=== PATIENT | male | born 1980 | race Caucasian/White ===

== ENCOUNTER 2021-02-03 01:20 | Observation (INO) | payer OTHER ==
[~2021-02-03] VITALS: Ht 170.2 cm; Wt 146.5 kg
[2021-02-03 01:30] VITALS: BP 156/119
--- NOTE | 2021-02-03 01:30 | NUR ---
TO BED AMBULATORY
--- NOTE | 2021-02-03 01:45 | NUR ---
RECEIVED IN BED 1 WITH C/O TONSILLECTOMY LAST SUNDAY MORNING, AND CANT BREATH, BETSY DRINKBARBIE PAI N ON HIS THROAT.
[2021-02-03] MEDS ORDERED: NACL 0.9% 1,000 ML IV ONE (03:15)
[2021-02-03] MEDS ORDERED: MORPHINE SULFATE 4 MG/ML SYR IVP ONE ×2 (03:15→04:25)
--- NOTE | 2021-02-03 03:20 | NUR ---
MEDICATED PER ERMDS ORDER, TOLERATED WELL.
[2021-02-03 03:26] LABS: BASOPHILS % (AUTO) 0.2 % (0.0-2.0); EOSINOPHILS % (AUTO) 0.1 % (0.0-4.0); HEMATOCRIT 44.2 % (36-52); HEMOGLOBIN 15.2 g/dL (12.0-18.0); LYMPHOCYTES # (AUTO) 3.6 K/uL (2.0-11.5); LYMPHOCYTES % (AUTO) 25.6 % (20.5-51.1); MEAN CORPUSCULAR HEMOGLOBIN 31 pg (27-31); MEAN CORPUSCULAR HGB CONC 34 g/dL (33-37); MEAN CORPUSCULAR VOLUME 88.9 fL (80-94); MONOCYTES # (AUTO) 1.1 K/uL (0.8-1.0); MONOCYTES % (AUTO) 8.2 % (1.7-9.3); NEUTROPHILS # (AUTO) 9.1 K/uL (1.8-7.7); NEUTROPHILS % (AUTO) 65.9 % (42.2-75.2); PLATELET COUNT (AUTO) 231 K/uL (140-450); RED BLOOD CELL COUNT(AUTO) 4.98 MIL/uL (4.20-6.10); RED CELL DISTRIBUTION WIDTH 13.9 % (11.6-13.7); WHITE BLOOD COUNT (AUTO) 13.9 K/uL (4.8-10.8)
[2021-02-03 03:56] LABS: ANION GAP 13.6 (8-16); CARBON DIOXIDE 28.9 mmol/L (21-32); CREATININE 0.8 mg/dL (0.6-1.3); POTASSIUM 3.5 mmol/L (3.5-5.1)
--- NOTE | 2021-02-03 04:40 | NUR ---
PAIN RETURNED. MEDICATED ORDERED. PT TO BE ADMITTED
[2021-02-03] MEDS ORDERED: FLUO10CA21 PO (04:46)
[2021-02-03] MEDS ORDERED: AMOX500C25 PO (04:48)
[2021-02-03] MEDS ORDERED: HYDR10SO PO (04:51)
[2021-02-03] MEDS ORDERED: ACETAMINOPHEN 325 MG TAB PO PRN (05:00)
[2021-02-03] MEDS ORDERED: ONDANSETRON 4 MG/2 ML VIAL IVP PRN (05:00)
[2021-02-03] MEDS ORDERED: HYDROcodone/APAP 5/325 MG 1 TAB TAB PO PRN (05:00)
[2021-02-03] MEDS ORDERED: LORazepam 2 MG/ML VIAL IVP PRN (05:00)
--- NOTE | 2021-02-03 05:42 | NUR ---
CALL TO GIVE REPORT. NURSE UNABLE TO TAKE REPORT AT THIS TIME
--- NOTE | 2021-02-03 06:31 | NUR ---
REPORT CALLED TO VALERIE KIM
[2021-02-03 06:40] VITALS: BP 140/77
--- NOTE | 2021-02-03 06:40 | NUR ---
Patient will be admitted . Admited to 114. Belongings list completed. Report to JUDY.
--- NOTE | 2021-02-03 06:40 | NUR ---
PATIENT WAS BROUGHT TO [facility] UNIT FROM ER VIA WHEELCHAIR AAOX4 AMBULATORY WITH THE CC: OF SOB DX: DEHYDRATION HX: DEPRESSION. NO S/S OF RESPIRATORY DISTRESS. WALKING AROUND THE ROOM. COMPLAINED OF THROAT PAIN AT 0655, LAST MORPHINE GIVEN AT ER WAS 0444. MRSA SCREENING DONE. SKIN IS INTACT. SAFETY PRECAUTIONS ARE IN PLACE. CALL LIGHT WITHIN REACH. ENDORSED TO AM NURSE.
--- NOTE | 2021-02-03 08:30 | NUR ---
RECEIVED REPORT FROM NURSE HORTON PATIENT IS AAOX4, ON REGULAR DIET, IV ON RIGHT HAND GAUGE 20, SKIN INTACT, HISTORY OF DEPRESSION. SAFETY MEASURES IN PLACE AND CALL LIGHT WITHIN REACH. WILL CONTINUE TO MONITOR.
[2021-02-03] MEDS: NACL 0.9% 1,000 ML IV SCH ×3 (09:05→19:45)
[2021-02-03] MEDS: ENOXAPARIN 40 MG/0.4 ML SYR SUBQ SCH (09:05)
[2021-02-03] MEDS: MORPHINE SULFATE 2 MG/ML SYR IVP PRN ×3 (09:10→20:36)
--- NOTE | 2021-02-03 09:22 | NUR ---
IV FLUID NS AT 100 MLS/HR GIVEN AND PT COMPLAINS OF PAIN 10/28 CHECK VBITAL SIGNS BP 140/77 RI 65 PAIN MEDICATIONS GIVEN.
--- NOTE | 2021-02-03 11:56 | NUR ---
DC PLANNING: RECEIVED A CALL FROM [facility] CM SPOKE WITH YANELI REQUESTING THE FACE SHEET TO BE FAXED TO [phone]. 40 YRS OLD MALE PATIENT WAS ADMITTED FROM HOME WITH A DX OF DEHYDRATION. PATIENT HAS A HX OF OBESITY AND SLEEP APNEA. CXR SHOWED NO ACUTE ABNORMALITIES . ADMINISTERED IVF AND PAIN MEDS MORPHINE IV. DC PLAN TO GO HOME WHEN STABLE CM TO FOLLOW
[2021-02-03 16:00] VITALS: BP 120/69
--- NOTE | 2021-02-03 16:26 | NUR ---
PATIENT HAS BEEN SCREENED AND CATEGORIZED HIGH NUTRITION RISK. PATIENT WILL BE SEEN WITHIN 1-2 DAYS OF ADMISSION. 02/02/21-02/04/21 RECEIVED FNS REFERRAL FOR REFUSING TO EAT OVER [address]
[2021-02-03] MEDS ORDERED: methylPREDNISolone SS 125 MG/2 ML VIAL IVP SCH (16:55)
--- NOTE | 2021-02-03 17:07 | NUR ---
SOLU MEDROL GIVEN ONCE PT TOLERATED WELL.
[2021-02-03] MEDS: PIPERACILLIN/TAZOBACTAM 3.375 GM in DEXTROSE 5% 50 ML IV SCH ×2 (17:32→23:49)
--- NOTE | 2021-02-03 17:41 | NUR ---
ADMINISTERED SCHEDULED MEDICATION ZOSYN ANTIBIOTIC INFUSING WELL.
--- NOTE | 2021-02-03 19:23 | NUR ---
ENDORSED TO NIGHT NURSE FOR CONTINUITY OF CARE. PT STABLE
--- NOTE | 2021-02-03 19:25 | NUR ---
RECEIVED BEDSIDE ENDORSEMENT FROM AM SHIFT RN. PATIENT CURRENTLY HAS NORMAL SALINE 100ML/HR RUNNING, RIGHT HAND 20G, SAFETY MEASURES IN PLACE, ON ROOM AIR, WILL CONTINUE TO MONITOR.
[2021-02-03 20:00] VITALS: BP 149/84
[2021-02-03] MEDS: methylPREDNISolone SS 125 MG/2 ML VIAL IVP SCH (20:35)
--- NOTE | 2021-02-03 22:00 | NUR ---
PATIENT IS IN BED, KEPT COMFORTABLE, SAFETY MEASURES IN PLACE, WATCHING TV, WILL CONTINUE TO MONITOR
--- NOTE | 2021-02-03 22:20 | NUR ---
PATIENT VOICED CONCERNED ABOUT TAKING HIS SCHEDULED ENOXAPARIN AT 0900 THE NEXT DAY. HE IS S/P TONSILLECTOMY ON 2020 AND SAID HIS DOCTOR SAID HE WASN'T SUPPOSE TO TAKE ENOXAPARIN. MOTHER VOICED THIS SAME CONCERN WELL. ENDORSED IT TO THE AM SHIFT NURSE
[2021-02-04 04:00] VITALS: BP 117/69
[2021-02-04] MEDS: methylPREDNISolone SS 125 MG/2 ML VIAL IVP SCH ×2 (04:23→14:01)
[2021-02-04] MEDS: MORPHINE SULFATE 2 MG/ML SYR IVP PRN ×2 (04:24→14:15)
[2021-02-04 05:41] LABS: HEMATOCRIT 43.3 % (36-52); HEMOGLOBIN 14.9 g/dL (12.0-18.0); LYMPHOCYTES # (AUTO) 1.3 K/uL (2.0-11.5); LYMPHOCYTES % (AUTO) 13.2 % (20.5-51.1); MEAN CORPUSCULAR HEMOGLOBIN 31 pg (27-31); MEAN CORPUSCULAR HGB CONC 35 g/dL (33-37); MEAN CORPUSCULAR VOLUME 88.6 fL (80-94); MONOCYTES # (AUTO) 0.3 K/uL (0.8-1.0); MONOCYTES % (AUTO) 2.5 % (1.7-9.3); NEUTROPHILS # (AUTO) 8.5 K/uL (1.8-7.7); NEUTROPHILS % (AUTO) 84.3 % (42.2-75.2); PLATELET COUNT (AUTO) 247 K/uL (140-450); RED BLOOD CELL COUNT(AUTO) 4.88 MIL/uL (4.20-6.10); RED CELL DISTRIBUTION WIDTH 13.8 % (11.6-13.7); WHITE BLOOD COUNT (AUTO) 10.1 K/uL (4.8-10.8)
[2021-02-04] MEDS: PIPERACILLIN/TAZOBACTAM 3.375 GM in DEXTROSE 5% 50 ML IV SCH ×2 (05:43→12:03)
[2021-02-04] MEDS ORDERED: ALBUTEROL SULFATE/IPRATROPIU 3 ML SOL IH PRN (06:30)
[2021-02-04 06:44] LABS: ALBUMIN 3.3 g/dL (3.4-5.0); ANION GAP 13.1 (8-16); CARBON DIOXIDE 26.6 mmol/L (21-32); CREATININE 0.8 mg/dL (0.6-1.3); POTASSIUM 3.7 mmol/L (3.5-5.1); TOTAL BILIRUBIN 0.6 mg/dL (0.0-1.0)
--- NOTE | 2021-02-04 07:39 | NUR ---
PASSED BEDSIDE ENDORSEMENT TO AM SHIFT NURSE. PATIENT IS STABLE, KEPT COMFORTABLE, ALL INTERVENTIONS INITIATED.
--- NOTE | 2021-02-04 07:41 | NUR ---
RECEIVED REPORT FROM ASSISTANT DESIGNER RN FOR CONTINUITY OF CARE. PATIENT IS IN BED RESTING. NO S/S OF DISTRESS. RESPIRATIONS ARE EVEN AND UNLABORED. ALL SAFETY PRECAUTIONS IN PLACE.
[2021-02-04 08:00] VITALS: BP 140/53
[2021-02-04] MEDS: ENOXAPARIN 40 MG/0.4 ML SYR SUBQ SCH (09:00)
--- NOTE | 2021-02-04 10:45 | NUR ---
PATIENT IS IN BED RESTING. NO S/S OF DISTRESS. RESPIRATIONS ARE EVEN AND UNLABORED. CALL LIGHT WITHIN REACH. WILL CONTINUE TO MONITOR.
[2021-02-04] MEDS: NACL 0.9% 1,000 ML IV SCH (11:28)
--- NOTE | 2021-02-04 13:00 | NUR ---
CHECKED ON PATIENT. PATIENT REMAINS STABLE. ALL SAFETY PRECAUTIONS IN PLACE.
--- NOTE | 2021-02-04 15:17 | NUR ---
02/04/21 RD INITIAL ASSESSMENT COMPLETED PLEASE REFER TO NUTRITION ASSESSMENT UNDER CARE ACTIVITY FOR ESTIMATED NUTRITIONAL NEEDS. 1. CONTINUE SOFT DIET TOLERATED 2. RD TO FOLLOW-UP 5-7 DAYS, LOW RISK [address]
--- NOTE | 2021-02-04 15:30 | NUR ---
PATIENT'S GRANDPA IS AT BEDSIDE VISITING. NO COMPLAINTS OF PAIN BY PATIENT. ALL SAFETY PRECAUTIONS IN PLACE.
[2021-02-04 16:49] VITALS: BP 123/77
--- NOTE | 2021-02-04 17:10 | NUR ---
PROVIDED DISCHARGE INSTRUCTIONS TO PATIENT. PATIENT VERBALIZED UNDERSTANDING. REMOVED PATIENT'S IV. IV CATH WAS INTACT.
--- NOTE | 2021-02-04 17:45 | NUR ---
PATIENT DISCHARGED FROM UNIT. PATIENT IS STABLE.
== END 2021-02-04 17:50 | disposition home or self-care (01) ==
LOC: MED 01:20 → MMU 05:00
PROVIDERS: ADMIT Hospitalist; ATTEND Hospitalist
DX: R13.10 Dysphagia, unspecified (principal); E86.0 Dehydration; R06.02 Shortness of breath; G47.33 Obstructive sleep apnea (adult) (pediatric); E66.01 Morbid (severe) obesity due to excess calories; Z79.899 Other long term (current) drug therapy; Z90.89 Acquired absence of other organs
CPT/HCPCS: 36415; 71045; 80048; 80053; 85025; 87081; 93005; 94760; 96361; 96365; 96366; 96372; 96375; 96376; 99285; G0378; J1650; J2270; J2543; J2930; J7060; Q0092